=== PATIENT | female | born 1930 | race Caucasian/White ===

== ENCOUNTER → 2017-02-18 | Outpatient (CLI) | payer MEDICARE, OTHER ==
[~2017-02-18] MED LIST: ASPIRIN EC81 MG PO; CRESTOR40 MG PO; FELODIPINE ER10 MG PO; MOBIC7.5 MG PO; NORCO 5-325 TA1 EACH PO; PROTONIX40 MG PO; TOPROL XL50 MG PO; VITAMIN D22000 UNIT PO; WELCHOL 625 MG625 MG PO
== END ==
LOC: HEART 5 09:44
DX: R00.2 Palpitations (principal); R06.02 Shortness of breath; I10 Essential (primary) hypertension; I51.7 Cardiomegaly; I08.1 Rheumatic disorders of both mitral and tricuspid valves
CPT/HCPCS: 93306

== ENCOUNTER 2021-03-15 15:00 | Inpatient (IN) | payer MEDICARE, OTHER ==
[~2021-03-15] VITALS: Ht 175.3 cm; Wt 68.0 kg
[2021-03-15 16:12] LABS: HEMOGLOBIN 13.5 gm/dl (12.3-15.3); RED BLOOD COUNT 4.11 M/UL (4.00-5.10); WHITE BLOOD COUNT 12.6 K/UL (4.5-11.0)
[2021-03-15 16:34] LABS: BUN/CREATININE RATIO 20 (0-10)
[2021-03-15] MEDS ORDERED: TRAMADOL HCL50 MG PO (18:59)
[2021-03-15] MEDS ORDERED: CYANOCOBAL1000 MCG/1 INJ (19:00)
[2021-03-15] MEDS ORDERED: ALENDRONATE SOD70 MG PO (19:01)
[2021-03-16 05:12] LABS: HEMOGLOBIN 11.3 gm/dl (12.3-15.3); RED BLOOD COUNT 3.51 M/UL (4.00-5.10); WHITE BLOOD COUNT 6.8 K/UL (4.5-11.0)
[2021-03-16 05:29] LABS: BUN/CREATININE RATIO 34 (0-10)
--- NOTE | 2021-03-16 14:29 | NUR ---
PATIENT VERY PLEASANT, ALERT AND ORIENTED WITH NO S/S CONFUSION, WAITING ON SURGERY TO REPAIR LEFT HIP AND CASTING TO LEFT FOREARM/WRIST. PATIENT PAIN HAS BEEN WELL CONTROLLED WITH MORPHINE. EDUCATED PATIENT TO NOTIFY NURSE WHEN PAIN IS PRESENT RATHER THAN WAITING UNTIL IT IS UNCONTROLLABLE. REASSURED PATIENT THAT IT WAS OKAY TO TAKE THE ORDERED PAIN MEDICATION. WILL CONTINUE TO MONITOR PATIENT CLOSELY WHILE WAITING FOR SURGERY.
[2021-03-17 04:59] LABS: HEMOGLOBIN 10.3 gm/dl (12.3-15.3); RED BLOOD COUNT 3.18 M/UL (4.00-5.10); WHITE BLOOD COUNT 7.4 K/UL (4.5-11.0)
[2021-03-18 04:19] LABS: HEMOGLOBIN 9.2 gm/dl (12.3-15.3); RED BLOOD COUNT 2.9 M/UL (4.00-5.10)
[2021-03-18 04:37] LABS: WHITE BLOOD COUNT 12.7 K/UL (4.5-11.0)
[2021-03-18 04:44] LABS: BUN/CREATININE RATIO 40 (0-10)
[2021-03-19 04:20] LABS: HEMOGLOBIN 8.8 gm/dl (12.3-15.3); RED BLOOD COUNT 2.75 M/UL (4.00-5.10)
[2021-03-19 04:21] LABS: WHITE BLOOD COUNT 8.1 K/UL (4.5-11.0)
[2021-03-19 04:36] LABS: BUN/CREATININE RATIO 39 (0-10)
[2021-03-21] MEDS ORDERED: TRAMADOL HCL50 MG PO (09:39)
[2021-03-21] MEDS ORDERED: ELIQUIS2.5 MG PO (13:14)
[2021-03-21] MEDS ORDERED: HYDROCODON-ACE1 EAC2 PO (13:35)
== END 2021-03-21 16:40 | DRG 481 ==
LOC: ER1 15:00 → CDU 16:52 → M/S 16:52
PROVIDERS: Internal Medicine; Orthopaedic Surgery; Physician Assistant Medical; Preventive Medicine Occupational Medicine; ADMIT Internal Medicine
PROC: 2W3CX2Z Immobilization of Right Lower Arm using Cast (ICD-10-PCS; 2021-03-16)
PROC: 0QS706Z Reposition Left Upper Femur with Intramedullary Internal Fixation Device, Open Approach (ICD-10-PCS; principal; 2021-03-16 18:32)
DX: S72.142A Displaced intertrochanteric fracture of left femur, initial encounter for closed fracture (principal); S52.502A Unspecified fracture of the lower end of left radius, initial encounter for closed fracture; I48.20 Chronic atrial fibrillation, unspecified; D62 Acute posthemorrhagic anemia; W01.0XXA Fall on same level from slipping, tripping and stumbling without subsequent striking against object, initial encounter; Y93.9 Activity, unspecified; Y92.009 Unspecified place in unspecified non-institutional (private) residence as the place of occurrence of the external cause; Z20.822 Contact with and (suspected) exposure to COVID-19; I25.10 Atherosclerotic heart disease of native coronary artery without angina pectoris; Z95.5 Presence of coronary angioplasty implant and graft; I10 Essential (primary) hypertension; E78.5 Hyperlipidemia, unspecified; Z90.49 Acquired absence of other specified parts of digestive tract; Z80.9 Family history of malignant neoplasm, unspecified; Z82.5 Family history of asthma and other chronic lower respiratory diseases; Z79.82 Long term (current) use of aspirin; Z79.899 Other long term (current) drug therapy; I07.1 Rheumatic tricuspid insufficiency; I27.20 Pulmonary hypertension, unspecified; D75.89 Other specified diseases of blood and blood-forming organs; D69.6 Thrombocytopenia, unspecified; D72.829 Elevated white blood cell count, unspecified; K44.9 Diaphragmatic hernia without obstruction or gangrene
CPT/HCPCS: ECHO; 36415; 51702; 71045; 73100; 73502; 76000; 80048; 80053; 81001; 83735; 85025; 85027; 86850; 86900; 86901; 87086; 93005; 93306; 94760; 96374; 97110-GP-CQ; 97116-GP-CQ; 97162; 97165; 97530; 97530-GP-CQ; 97535; 99284; C1713; J0171; J0690; J1100; J2001; J2270; J2370; J2405; J2704; J2795; J3010; J7120; U0002